=== PATIENT | female | born 1990 | race Caucasian/White ===

== ENCOUNTER 2016-06-27 12:39 | Emergency (ER) | payer OTHER, MEDICAID ==
[~2016-06-27] VITALS: Ht 167.6 cm; Wt 61.2 kg
[~2016-06-27 12:39] MED LIST: IBUP600 PO; PERI8.6T PO
[2016-06-27 12:43] VITALS: BP 129/87; PULSE 87; RESP 18; TEMP 99.2; O2SAT 99
--- NOTE | 2016-06-27 13:12 | PD ---
HPI Chief Complaint: Abdominal Pain Time Seen by Provider: 13:03 Travel History International Travel<30 days: No Contact w/Intl Traveler<30days: No Traveled to known affect area: No History of Present Illness HPI This 26-year-old female says he been vomiting off and on the last couple weeks. She has vomited twice today. She vomits about 3 or 4 times a day. She has a baby that 6 months old. She is concerned she might be now. She is not having abdominal pain. she had some morning sickness with her previous but did not take any medication PFSH Past Medical History Autoimmune Disease: No Anxiety: No Depression: No Cardiovascular Problems: No Diminished Hearing: No Gastrointestinal Disorders: Yes Genitourinary: No Musculoskeletal: No Neurologic: No Psychiatric: No Respiratory: No Immunizations Current: Yes Influenza Vaccination: No PNEUMOCCOCAL Vaccine (Year): 2 ?: Unknown LMP: 4 MONTHS : 1 Para: 1 : 1 Past Surgical History Other Surgery: Yes Social History Alcohol Use: No Tobacco Use: No Substance Use: No Allergies-Medications (Allergen,Severity, Reaction): Coded Allergies: No Known Allergies (Verified , 06/27/16) Reported Meds & Prescriptions Reported Meds & Active Scripts Active Review of Systems General / Constitutional: No: Fever, Chills Eyes: No: Diploplia, Blurred Vision HENT: No: Vertigo Respiratory: No: Cough Gastrointestinal: Positive: Vomiting, No: Diarrhea Genitourinary: No: Urgency, Frequency Musculoskeletal: No: Myalgias, Arthralgias Physical Exam Narrative GENERAL: Well-developed female SKIN: Warm and dry. HEAD: Atraumatic. Normocephalic. EYES: Pupils equal and round. No scleral icterus. No injection or drainage. ENT: No nasal bleeding or discharge. Mucous membranes pink and moist. NECK: Trachea midline. No JVD. CARDIOVASCULAR: Regular rate and rhythm. No murmur appreciated. RESPIRATORY: No accessory muscle use. Clear to auscultation. Breath sounds equal bilaterally. GASTROINTESTINAL: Abdomen soft, non-tender, nondistended. Hepatic and splenic margins not palpable. MUSCULOSKELETAL: No obvious deformities. No clubbing. No cyanosis. No edema. NEUROLOGICAL: Awake and alert. No obvious cranial nerve deficits. Motor grossly within normal limits. Normal speech. PSYCHIATRIC: Appropriate mood and affect; insight and judgment normal. Data Data Last Documented VS Vital Signs Date Time Temp Pulse Resp B/P Pulse Ox O2 Delivery O2 Flow Rate FiO2 06/27/16 12:43 99.2 87 18 129/87 99 Orders Ed Urine Pregnancytest Poc (06/27/16 13:03) Sodium Chlor 0.9% 1000 Ml Inj (Ns 1000 M (06/27/16 13:15) Ondansetron Inj (Zofran Inj) (06/27/16 13:15) Urinalysis - C+S If Indicated (06/27/16 13:07) Urine Culture (06/27/16 13:05) Labs Laboratory Tests Test 06/27/16 13:05 Urine Color YELLOW Urine Turbidity HAZY Urine pH 7.0 Urine Specific [place] 1.033 Urine Protein TRACE mg/dL Urine Glucose (UA) NEG mg/dL Urine Ketones 40 mg/dL Urine Occult Blood NEG Urine Nitrite NEG Urine Bilirubin NEG Urine Leukocyte Esterase SMALL Urine RBC 0-3 /hpf Urine WBC 6-8 /hpf Urine Squamous Epithelial > 8 /hpf Cells Urine Bacteria MOD /hpf Urine Mucus FEW /lpf Microscopic Urinalysis Comment CULTURE INDICATED MDM Medical Decision Making Medical Screen Exam Complete: Yes Emergency Medical Condition: Yes Medical Record Reviewed: Yes Differential Diagnosis Differential includes , gastritis Narrative Course Regnancy test is positive. Patient has been tolerating some liquids. Urinalysis has 6-8 white cells which is somewhat equivocal but we will treat as she is Diagnosis Primary Impression: Nausea and vomiting during Additional Impression: Urinary tract infection affecting care of mother in first trimester, antepartum Scripts Nitrofurantoin Monohydrate Macrocrystals (Macrobid)100 Mg [id number] Mg PO BID 7 Days Ref 0 Prov:David Rey MD 06/27/16 Disposition: 01 DISCHARGE HOME Condition: Stable David Rey MD Jun 27, 2016 13:12
[2016-06-27] MEDS ORDERED: ONDANSETRON HCL 4 MG/2 ML VIAL IV PUSH ONE (13:15)
[2016-06-27] MEDS ORDERED: SODIUM CHLOR 0.9% 1000 ML INJ 1,000 ML IV ONE (13:15)
[2016-06-27 13:16] LABS: BLOOD, URINE NEG (NEG); GLUCOSE,URINE NEG (NEG); KETONE, URINE 40 mg/dL (NEG); NITRITE,URINE NEG (NEG)
[2016-06-27 13:23] LABS: URINE COLOR YELLOW (YELLW/STRAW)
[2016-06-27 13:25] LABS: BACTERIA, URINE MOD /hpf; MUCUS URINE FEW /lpf (OCC); RBC, URINE 0-3 /hpf (0-3); SQUAMOUS EPITHELIAL CELL URINE > 8 /hpf (0-5)
[2016-06-27 13:26] LABS: COMMENT (UR) CULTURE INDICATED; CULTURE IF INDICATED CULTURE INDICATED
[2016-06-27] MEDS ORDERED: MACR100C2 PO (13:30)
== END 2016-06-27 13:44 | disposition home or self-care (01) ==
LOC: PHED 12:39
DX: O23.41 Unspecified infection of urinary tract in pregnancy, first trimester (principal); O21.0 Mild hyperemesis gravidarum; Z3A.00 Weeks of gestation of pregnancy not specified
CPT/HCPCS: 81001; 84703; 87086; 99284

== ENCOUNTER 2016-07-02 11:44 | Observation (INO) | payer MEDICAID, OTHER ==
[~2016-07-02 11:44] MED LIST changes: -IBUP600 PO; +MACR100C2 PO; -PERI8.6T PO
[2016-07-02 11:46] VITALS: BP 147/105; PULSE 105; RESP 16; TEMP 97.9; O2SAT 98
[2016-07-02] MEDS ORDERED: LACTATED RINGER'S 1000 ML INJ 1,000 ML IV SCH (13:00)
[2016-07-02] MEDS ORDERED: LACTATED RINGER'S 1000 ML INJ 1,000 ML IV ONE (13:00)
[2016-07-02 13:29] LABS: AUTOMATED NEUTROPHIL # 9.6 TH/MM3 (1.8-7.7); BASOPHIL # 0.1 TH/MM3 (0-0.2); BASOPHIL % 0.4 % (0.0-2.0); EOSINOPHIL % 0.2 % (0.0-4.0); HEMATOCRIT 42.9 % (35.0-46.0); HEMO FLAGS DIFF FINAL; LYMPH % 19.4 % (9.0-44.0); LYMPHOCYTE # 2.7 TH/MM3 (1.0-4.8); MEAN CELL VOLUME 80.2 FL (80.0-100.0); MEAN CORPUSCULAR HEMOGLOBIN 28.3 PG (27.0-34.0); MEAN CORPUSCULAR HGB CONC 35.2 % (32.0-36.0); MONO % 9.5 % (0.0-8.0); NEUT % 70.5 % (16.0-70.0); PLATELET COUNT 248 TH/MM3 (150-450); RED BLOOD COUNT 5.35 MIL/MM3 (4.00-5.30); RED CELL DISTRIBUTION WIDTH 13.3 % (11.6-17.2); WHITE BLOOD COUNT 13.7 TH/MM3 (4.0-11.0)
--- NOTE | 2016-07-02 13:32 | PD ---
HPI Chief Complaint Nausea and vomiting Date Seen: Jul 02, 2016 Time Seen: 13:00 Travel History International Travel<30 Days: No Contact w/Intl Traveler<30Days: No Known Affected Area: No History of Present Illness HPI 26-year-old 001 at approximately 10 weeks of gestation by bedside ultrasound performed in OB ED. Patient presents to labor and delivery complaining of persistent episodes of nausea and vomiting for the last 5 days. Patient reported that the family went out to eat in a restaurant after which the [id number] started getting sick, followed by her and then the patient. Patient denies cramping, leakage of fluids, vaginal bleeding. The close-spaced/ short interval , patient has a 6-month-old baby at home. She denies dysuria, frequency, fever and chills. Patient is yet to start care with Dr. Jiménez, first visit has been scheduled. Para: 1 : 2 Miscarriage: 0 : 0 History Past Medical History Narrative Medical Denies Medical History: Denies Significant Hx Obstetric History Obstetric History Spontaneous vaginal delivery 1 Past Surgical History Narrative Surgical Status post left knee surgery Family History Narrative Family History Father has hypertension Social History Alcohol Use: No Tobacco Use: No Substance Abuse: No Allergies-Medications (Allergen,Severity, Reaction): Coded Allergies: No Known Allergies (Verified , 06/27/16) Home Meds Active Scripts Nitrofurantoin Monohydrate Macrocrystals (Macrobid)100 Mg [id number] Mg PO BID 7 Days Ref 0 Prov:David Rey MD 06/27/16 Review of Systems Except as stated in HPI: all other systems reviewed are Neg Gastrointestinal: Nausea, Vomiting Physical Exam Narrative GENERAL: Well-nourished, well-developed patient. SKIN: Warm and dry. HEAD: Normocephalic and atraumatic. EYES: No scleral icterus. No injection or drainage. ENT: No nasal drainage noted. Mucous membranes pink. Airway patent. NECK: Supple, trachea midline. No JVD. CARDIOVASCULAR: Regular rate and rhythm without murmurs, gallops, or rubs. RESPIRATORY: Breath sounds equal bilaterally. No accessory muscle use. BREASTS: Bilateral exam showed no masses , no retractions, no nipple discharge. ABDOMEN/GI: Abdomen soft, non-tender, bowel sounds present, no rebound, no guarding Gravid to 9 weeks size Fundal Height: 9cm GENITOURINARY: External Genitalia: intact and normal in appearance BUS glands: Normal Cervix: Closed, long, posterior Dilatation: Closed Effacement: 20% Station: -4 Presentation: Variable Membranes: Intact Uterine Contractions: None Heart Tones by doppler: 160's EXTREMITIES: No cyanosis or edema. BACK: Nontender without obvious deformity. No CVA tenderness. NEUROLOGICAL: Awake and alert. Motor and sensory grossly within normal limits. Five out of 5 muscle strength in all muscle groups. Normal speech. Data Data Vital Signs Reviewed: Yes Orders Vital Signs (Adult) .ON ADMISSION (07/02/16 12:47) ^ Labor Status (07/02/16 12:47) Urinalysis - C+S If Indicated (07/02/16 12:47) ^ Non Stress Test (07/02/16 12:47) ^ Hydration (07/02/16 12:47) Comprehensive Metabolic Panel (07/02/16 12:47) Lactated Ringer's 1000 Ml Inj (Lr 1000 M (07/02/16 13:00) Ondansetron Inj (Zofran Inj) (07/02/16 14:00) Lactated Ringer's 1000 Ml Inj (Lr 1000 M (07/02/16 13:00) Promethazine Inj (Phenergan Inj) (07/02/16 14:00) Magnesium (Mg) (07/02/16 12:47) Phosphorus (Po4) (07/02/16 12:47) Free Thyroxine (T4) (07/02/16 12:47) Thyroid Stimulating Hormone (07/02/16 12:47) Complete Blood Count With Diff (07/02/16 12:50) Diet Full Liquid (07/02/16 Lunch) MDM Medical Record Reviewed: Yes Diagnosis Diagnosis: Primary Impression: 10 weeks gestation of Additional Impression: Nausea and vomiting during Disposition: DISCHARGE HOME Condition: Stable Patient Instructions: General Instructions Additional Instructions: We will place patient on the observation, IV hydration, by mouth challenge, we' ll send CMP CBC and urinalysis. Upon discharge patient is instructed to return to labor and delivery if increased symptoms, cramping, contractions, leakage of fluids, vaginal bleeding. Drink plenty of fluids. Keep office appointment as scheduled. Take medications as prescribed. Departure Forms: Tests/Procedures Bharat Carvajal MD Jul 02, 2016 13:32
[2016-07-02 13:38] LABS: BACTERIA, URINE OCC /hpf; BLOOD, URINE NEG (NEG); COMMENT (UR) CULTURE INDICATED; CULTURE IF INDICATED CULTURE INDICATED; GLUCOSE,URINE TRACE mg/dL (NEG); KETONE, URINE 150 mg/dL (NEG); MUCUS URINE MANY /lpf (OCC); NITRITE,URINE NEG (NEG); PH, URINE 5.5 (5.0-8.5); SQUAMOUS EPITHELIAL CELL URINE 88 /hpf (0-5); URINE COLOR DARK-YELLOW (YELLW/STRAW)
[2016-07-02 13:46] LABS: ANION GAP 14 MEQ/L (5-15); AST (GOT) 39 U/L (15-37); BICARBONATE 26.5 MEQ/L (21.0-32.0); BLOOD UREA NITROGEN 10 MG/DL (7-18); CHLORIDE 96 MEQ/L (98-107); GLOMERULAR FILTRATION RATE 118 ML/MIN (>89); MAGNESIUM 2.1 MG/DL (1.5-2.5); SODIUM (NA) 136 MEQ/L (136-145)
[2016-07-02 13:49] LABS: POTASSIUM 2.8 MEQ/L (3.5-5.1)
[2016-07-02 13:59] LABS: ALKALINE PHOSPHATASE 111 U/L (45-117); ALT (GPT) 67 U/L (10-53); FREE T4 2.42 NG/DL (0.76-1.46); TOTAL BILIRUBIN ADULT 1.1 MG/DL (0.2-1.0)
[2016-07-02] MEDS ORDERED: PROMETHAZINE INJ 25 MG/ML VIAL IM ONE (14:00)
[2016-07-02] MEDS ORDERED: POTASSIUM CHLORIDE 10 MEQ CONTROLLED RELEASE TAB PO SCH (14:00)
[2016-07-02] MEDS ORDERED: ONDANSETRON HCL 4 MG/2 ML VIAL IV ONE (14:00)
[2016-07-02] MEDS ORDERED: ONDANSETRON HCL 4 MG/2 ML VIAL IV PUSH SCH (14:00)
[2016-07-02] MEDS: cefTRIAXone INJ 2,000 MG in SODIUM CHLORIDE 0.9% INJ 100 ML IV SCH (14:54)
[2016-07-02 16:06] LABS: FREE T3 5.01 PG/ML (2.18-3.98)
[2016-07-02] MEDS ORDERED: PILL SPLITTER OTHER PRN (16:15)
[2016-07-02] MEDS: NS + KCL 40 MEQ INJ 1,000 ML IV SCH ×2 (16:22→23:34)
[2016-07-02] MEDS: PYRIDOXINE HCL 50 MG TAB PO SCH ×2 (16:23→19:26)
[2016-07-02] MEDS: POTASSIUM CHLORIDE 10 MEQ CONTROLLED RELEASE TAB PO SCH (16:23)
[2016-07-02 16:39] VITALS: BP 117/74; PULSE 87
[2016-07-02 16:40] VITALS: RESP 20
[2016-07-02 18:00] VITALS: BP 123/80; PULSE 84; RESP 20; TEMP 97.3; O2SAT 97
[2016-07-02] MEDS ORDERED: SODIUM CHLORIDE 0.9% FLUSH 5 ML FLUSH IVF PRN (18:15)
[2016-07-02] MEDS ORDERED: PROMETHAZINE INJ 25 MG/ML VIAL IM PRN (18:15)
[2016-07-02] MEDS: LEVOTHYROXINE SODIUM 50 MCG TAB PO SCH (18:23)
[2016-07-02] MEDS: ONDANSETRON HCL 4 MG/2 ML VIAL IV PUSH SCH (19:26)
[2016-07-02] MEDS: SODIUM CHLORIDE 0.9% FLUSH 5 ML FLUSH IVF SCH (19:26)
[2016-07-02 20:00] VITALS: BP 119/78; PULSE 104; RESP 17; TEMP 98.8; O2SAT 97
[2016-07-02] MEDS: diphenhydrAMINE HCL 25 MG CAP PO SCH (20:34)
[2016-07-03] VITALS: BP 124/82; PULSE 88; RESP 16; TEMP 98.2; O2SAT 98
[2016-07-03] MEDS: ONDANSETRON HCL 4 MG/2 ML VIAL IV PUSH SCH ×5 (02:11→19:06)
[2016-07-03 04:00] VITALS: BP 111/78; PULSE 74; RESP 16; TEMP 97.6; O2SAT 97
[2016-07-03] MEDS: POTASSIUM CHLORIDE 10 MEQ CONTROLLED RELEASE TAB PO SCH (04:26)
[2016-07-03] MEDS: PYRIDOXINE HCL 50 MG TAB PO SCH ×4 (04:27→19:07)
[2016-07-03] MEDS: LEVOTHYROXINE SODIUM 50 MCG TAB PO SCH (04:27)
[2016-07-03 07:31] LABS: BICARBONATE 25.6 MEQ/L (21.0-32.0); POTASSIUM 4.2 MEQ/L (3.5-5.1)
[2016-07-03 08:00] VITALS: BP 98/70; PULSE 94; RESP 18; TEMP 98.2; O2SAT 96
[2016-07-03] MEDS: SODIUM CHLORIDE 0.9% FLUSH 5 ML FLUSH IVF SCH ×2 (08:08→19:06)
[2016-07-03] MEDS: NS + KCL 40 MEQ INJ 1,000 ML IV SCH ×2 (08:08→15:18)
[2016-07-03 12:00] VITALS: BP 101/70; PULSE 88; RESP 16; TEMP 98.8; O2SAT 97
[2016-07-03] MEDS: cefTRIAXone INJ 2,000 MG in SODIUM CHLORIDE 0.9% INJ 100 ML IV SCH (15:19)
[2016-07-03 16:00] VITALS: BP 111/60; PULSE 80; RESP 16; TEMP 98.6; O2SAT 99
[2016-07-03] MEDS: diphenhydrAMINE HCL 25 MG CAP PO SCH (19:06)
[2016-07-03 20:00] VITALS: BP 113/69; PULSE 87; RESP 16; TEMP 98.6; O2SAT 98
[2016-07-04] VITALS: BP 115/64; PULSE 72; RESP 16; TEMP 98.4; O2SAT 99
[2016-07-04 04:00] VITALS: BP 102/67; PULSE 71; RESP 16; TEMP 95.9; O2SAT 99
[2016-07-04] MEDS: ONDANSETRON HCL 4 MG/2 ML VIAL IV PUSH SCH ×4 (04:00→12:00)
[2016-07-04] MEDS: PYRIDOXINE HCL 50 MG TAB PO SCH ×3 (04:06→14:55)
[2016-07-04] MEDS: LEVOTHYROXINE SODIUM 50 MCG TAB PO SCH (04:06)
[2016-07-04] MEDS: SODIUM CHLORIDE 0.9% FLUSH 5 ML FLUSH IVF SCH (07:59)
[2016-07-04 08:00] VITALS: BP 116/69; PULSE 72; RESP 15; TEMP 96.7; O2SAT 100
[2016-07-04] MEDS: NS + KCL 40 MEQ INJ 1,000 ML IV SCH ×2 (08:03)
[2016-07-04 12:00] VITALS: BP 114/74; PULSE 83; RESP 16; TEMP 96.8; O2SAT 98
--- NOTE | 2016-07-04 12:47 | PD.OB.ANTE ---
Subjective Diagnosis: (1) 10 weeks gestation of Diagnosis: Principal (2) Hyperemesis gravidarum with metabolic disturbance Diagnosis: Secondary Interval History Patient is doing well, denies nausea and vomiting, patient is tolerating regular diet, voiding well and ambulating without difficulty. Patient desires to go home. Antepartum ROS: Reports: Other (no new complaints) Objective Vital Signs Vital signs are stable Vital Signs Date Time Temp Pulse Resp B/P Pulse Ox O2 Delivery O2 Flow Rate FiO2 07/04/16 08:00 96.7 72 15 116/69 100 07/04/16 04:00 95.9 71 16 102/67 99 07/04/16 00:00 98.4 72 16 115/64 99 07/03/16 20:00 98.6 87 16 113/69 98 07/03/16 16:00 98.6 80 16 111/60 99 Intake & Output 07/04/16 07/04/16 07:00 19:00 Intake Total 2469 ml Output Total 2200 ml Balance 269 ml Intake Oral 960 ml IV Total 1509 ml Output Urine Total 2200 ml Lab & Micro Results Date/Time Procedure Status Source Growth 07/02/16 12:15 Urine Culture - Final Complete Urine Clean Catch 50-100,000 CFU/ML MIXED GRAM POSITIVE... Physical Exam GENERAL: Well-nourished, well-developed patient. CARDIOVASCULAR: Regular rate and rhythm without murmurs, gallops, or rubs. RESPIRATORY: Breath sounds equal bilaterally. No accessory muscle use. ABDOMEN/GI: Abdomen soft, gravid, non-tender. Fundus: 90 cm GENITOURINARY: External Genitalia: intact and normal in appearance Heart Tones's by doppler: 160's EXTREMITIES: No cyanosis or edema, non-tender, without signs of DVT. Assessment and Plan Problem List: (1) 10 weeks gestation of Status: Acute (2) Hyperemesis gravidarum with metabolic disturbance Status: Acute Assessment and Plan at 10 weeks of gestation with hyperemesis gravidarum with metabolic disturbance. Patient is doing well, nausea and vomiting is resolved. Patient is desires to go home. 1. at 10 weeks of gestation * We'll discharge patient to home * Follow with the Dr. Jiménez for first visit * Continue with vitamins * Estimated gestational age ultrasound as an outpatient. * 2. Hyperemesis gravidarum with metabolic disturbance * We'll discharge patient home with Zofran 4 mg by mouth every 4 hours as needed for nausea * Vitamins B6 25 mg orally every 6 hours * Diclegis 2 tablets orally at bedtime. * 3. Hyperthyroidism * Continue with Synthroid 50 MCG 1 day * Follow with decorator consultant We'll discharge patient to home today, follow with Dr. Jiménez in 1-2 days. Bharat Carvajal MD Jul 04, 2016 12:47
[2016-07-04] MEDS ORDERED: VITA50TA3 PO (12:53)
[2016-07-04] MEDS ORDERED: LEVO.05 PO (12:54)
--- NOTE | 2016-07-04 13:00 | HHI.DS ---
Admission Date Jul 02, 2016 at 18:12 Discharge Date: Jul 04, 2016 Admitting Diagnosis at 10 weeks of gestation, hyperemesis gravidarum with metabolic disturbance, hypokalemia, hyperthyroidism Diagnosis: (1) 10 weeks gestation of Diagnosis: Principal (2) Hyperemesis gravidarum with metabolic disturbance Diagnosis: Secondary (3) Hypokalemia Diagnosis: Secondary (4) Hyperthyroidism affecting in first trimester Diagnosis: Secondary (5) UTI (urinary tract infection) Diagnosis: Secondary Brief History 26-year-old 001 at approximately 10 weeks of gestation by bedside ultrasound performed in OB ED. Patient presents to labor and delivery complaining of persistent episodes of nausea and vomiting for the last 5 days. Patient reported that the family went out to eat in a restaurant after which the [id number] started getting sick, followed by her and then the patient. Patient denies cramping, leakage of fluids, vaginal bleeding. The close-spaced/ short interval , patient has a 6-month-old baby at home. She denies dysuria, frequency, fever and chills. Patient is yet to start care with Dr. Jiménez, first visit has been scheduled. Hospital Course The hospital course was unremarkable patient was treated with Zofran, promethazine, vitamin B6 and ceftriaxone for treatment of UTI. On the day of discharge symptoms have resolved, patient was doing well and desires to go home. Pt Condition on Discharge: Stable Discharge Disposition: Discharge Home Discharge Instructions Diet Instructions: As Tolerated, No Restrictions Additional Diet Instructions: eat small frequent meals as tolerated. Activities You Can Perform: Regular-No Restrictions Activities to Avoid: Prolonged Standing, Strenuous Activity Bharat Carvajal MD Jul 04, 2016 12:59
== END 2016-07-04 16:25 | disposition home or self-care (01) ==
LOC: HOBED 11:44 → HOCA 18:12
PROVIDERS: ADMIT Obstetrics & Gynecology; ATTEND Obstetrics & Gynecology
DX: O21.1 Hyperemesis gravidarum with metabolic disturbance (principal); O99.281 Endocrine, nutritional and metabolic diseases complicating pregnancy, first trimester; E05.90 Thyrotoxicosis, unspecified without thyrotoxic crisis or storm; O23.41 Unspecified infection of urinary tract in pregnancy, first trimester; Z3A.10 10 weeks gestation of pregnancy
CPT/HCPCS: 59025; 80048; 80053; 81001; 83735; 84100; 84439; 84443; 84481; 84702; 85025; 87086; 96361; 96365; 96366; 96372; 96375; 99284; G0378; J0696; J2405; J2550; J3480; J7120

== ENCOUNTER 2016-07-11 17:41 | Emergency (ER) | payer MEDICAID, OTHER ==
[~2016-07-11] VITALS: Ht 167.6 cm; Wt 65.9 kg
[~2016-07-11 17:41] MED LIST changes: +LEVO.05 PO; +VITA50TA3 PO
[2016-07-11 17:47] VITALS: BP 139/85; PULSE 92; RESP 16; TEMP 98.5; O2SAT 95
[2016-07-11 18:29] LABS: BLOOD, URINE NEG (NEG); COMMENT (UR) CULTURE INDICATED; CULTURE IF INDICATED CULTURE INDICATED; GLUCOSE,URINE 70 mg/dL (NEG); KETONE, URINE 10 mg/dL (NEG); MUCUS URINE MANY /lpf (OCC); NITRITE,URINE NEG (NEG); PH, URINE 6.5 (5.0-8.5); SQUAMOUS EPITHELIAL CELL URINE 53 /hpf (0-5); URINE COLOR YELLOW (YELLW/STRAW)
[2016-07-11] MEDS ORDERED: SODIUM CHLOR 0.9% 1000 ML INJ 1,000 ML IV ONE ×2 (22:15→23:45)
--- NOTE | 2016-07-11 22:17 | PD ---
HPI Chief Complaint: GI Complaint Time Seen by Provider: 22:09 Travel History International Travel<30 days: No Contact w/Intl Traveler<30days: No Traveled to known affect area: No History of Present Illness HPI The patient is a 26 year old female at approximately 10 weeks gestation who presents to the [facility] emergency department with a history of nausea and vomiting that began recurrently 3 days ago. The patient was just recently admitted to the hospital overnight related to electrolyte derangements and hyperemesis gravidarum. The patient was discharged home with a prescription for V6, Zofran, promethazine, Synthroid, and Macrobid, however the patient reports that she could only get the V6 vitamin. The patient reports that she recurrently had nausea and vomiting that has gradually gotten worse over today. She reports that she is able to eat small meals, however she cannot keep down any liquids. She reports having generalized weakness. She reports that she did follow up with her CLAMPER, Dr. Jiménez 3 days after her last admission to the hospital on July 02. She reports that her ultrasound was again done at that time that confirmed heart tones and intrauterine . The patient reports that the last time that she had a bowel movement was 2 days ago. The patient denies any recent fevers, cough, congestion, neck pain, chest pain, shortness of breath, diarrhea, urinary symptoms, or neurologic symptoms. LMP: Reportedly March 28, however the patient reports that she had a term vaginal delivery in November 2015. [facility] Past Medical History Narrative Medical The patient's past medical history is significant for recently being diagnosed with a thyroid abnormality during her last admission for hyperemesis, however the patient has not started the Synthroid. Autoimmune Disease: No Blood Disorders: No Anxiety: No Depression: No Cancer: No Cardiovascular Problems: No Diminished Hearing: No Endocrine: No Gastrointestinal Disorders: Yes Genitourinary: No Immune Disorder: No Musculoskeletal: No Neurologic: No Psychiatric: No Respiratory: No Immunizations Current: Yes PNEUMOCCOCAL Vaccine (Year): 2 ?: LMP: Mar 28 : 1 Para: 1 : 1 Past Surgical History Narrative Surgical The patient's past surgical history is significant for a left knee surgery. Other Surgery: Yes Social History Alcohol Use: No Tobacco Use: No Substance Use: No Allergies-Medications (Allergen,Severity, Reaction): Coded Allergies: No Known Allergies (Verified , 06/27/16) Reported Meds & Prescriptions Reported Meds & Active Scripts Active Phenergan (Promethazine HCl) 25 Mg Tab 12.5 Mg PO Q 6 HOURS Synthroid (Levothyroxine Sodium) 50 Mcg Tab 50 Mcg PO DAILY@06 Vitamin B-6 (Pyridoxine HCl) 50 Mg Tab 25 Mg PO Q6HR Macrobid (Nitrofurantoin Monoh/Nitrofur Macro) 100 Mg Cap 100 Mg PO BID 7 Days Review of Systems Except as stated in HPI: all other systems reviewed are Neg General / Constitutional: No: Fever Eyes: No: Visual changes HENT: No: Headaches Cardiovascular: No: Chest Pain or Discomfort Respiratory: No: Shortness of Breath Gastrointestinal: Positive: Nausea, Vomiting, Abdominal Pain, Constipation, Changes in Bowel Habits, No: Diarrhea, Indigestion, Loss of Appetite Genitourinary: No: Urgency, Frequency, Dysuria, Flank Pain Musculoskeletal: No: Pain Skin: No Rash Neurologic: Positive: Weakness (generalized weakness), No: Focal Abnormalities , Change in Mentation, Slurred Speech, Sensory Disturbance Psychiatric: No: Depression Endocrine: No: Polydipsia Hematologic/Lymphatic: No: Easy Bruising Physical Exam Narrative General: The patient is well-developed well-nourished female in no acute distress. Head and Neck exam: Head is normocephalic atraumatic. Eyes: Pupils are equal round and reactive to light. Nose: Midline septum with pink mucous membranes Mouth: Dentition unremarkable. Moist mucus membranes. Posterior oropharynx is not erythematous. No tonsillar hypertrophy. Uvula midline. Airway patent. Neck: No palpable lymphadenopathy. No nuchal rigidity. No thyromegaly. Cardiovascular: Regular rate and rhythm without murmurs, gallops, or rubs. Lungs: Clear to auscultation bilaterally. No wheezes, rhonchi, or rales. Abdomen: Soft, without tenderness to palpation in all 4 quadrants of the abdomen. No guarding, rebound, or rigidity. Normal bowel sounds are audible. No tenderness on palpation of McBurney's point. Extremities: No clubbing, cyanosis, or edema. 2+ pulses in all 4 extremities. No calf tenderness on palpation. Back: No spinous process tenderness to palpation. No costovertebral angle tenderness to palpation. Neurologic Exam: Grossly nonfocal. Skin Exam: No rash noted. Intact skin that is warm and dry. Data Data Last Documented VS Vital Signs Date Time Temp Pulse Resp B/P Pulse Ox O2 Delivery O2 Flow Rate FiO2 07/11/16 23:28 18 07/11/16 23:23 100 Room Air 07/11/16 17:47 98.5 92 139/85 Orders Urinalysis - C+S If Indicated (07/11/16 17:56) Ed Urine Pregnancytest Poc (07/11/16 17:56) Urine Culture (07/11/16 18:10) Complete Blood Count With Diff (07/11/16 22:12) Comprehensive Metabolic Panel (07/11/16 22:12) Lipase (07/11/16 22:12) Beta Hcg (Quant/Titer) (07/11/16 22:12) Iv Access Insert/Monitor (07/11/16 22:12) Ecg Monitoring (07/11/16 22:12) Oximetry (07/11/16 22:12) Sodium Chlor 0.9% 1000 Ml Inj (Ns 1000 M (07/11/16 22:15) Ondansetron Inj (Zofran Inj) (07/11/16 22:45) Ondansetron Inj (Zofran Inj) (07/11/16 22:34) Thyroid Stimulating Hormone (07/11/16 22:30) Sodium Chlor 0.9% 1000 Ml Inj (Ns 1000 M (07/11/16 23:45) Labs Laboratory Tests Test 07/11/16 07/11/16 18:10 22:30 Urine Color YELLOW Urine Turbidity HAZY Urine pH 6.5 Urine Specific [place] 1.029 Urine Protein 30 mg/dL Urine Glucose (UA) 70 mg/dL Urine Ketones 10 mg/dL Urine Occult Blood NEG Urine Nitrite NEG Urine Bilirubin NEG Urine Urobilinogen LESS THAN 2.0 MG/DL Urine Leukocyte Esterase LARGE Urine RBC 2 /hpf Urine WBC 7 /hpf Urine Squamous Epithelial 53 /hpf Cells Urine Mucus MANY /lpf Microscopic Urinalysis Comment CULTURE INDICATED White Blood Count 13.7 TH/MM3 Red Blood Count 5.18 MIL/MM3 Hemoglobin 15.2 GM/DL Hematocrit 42.8 % Mean Corpuscular Volume 82.7 FL Mean Corpuscular Hemoglobin 29.4 PG Mean Corpuscular Hemoglobin 35.6 % Concent Red Cell Distribution Width 13.1 % Platelet Count 264 TH/MM3 Mean Platelet Volume 9.5 FL Neutrophils (%) (Auto) 70.1 % Lymphocytes (%) (Auto) 21.2 % Monocytes (%) (Auto) 8.1 % Eosinophils (%) (Auto) 0.2 % Basophils (%) (Auto) 0.4 % Neutrophils # (Auto) 9.6 TH/MM3 Lymphocytes # (Auto) 2.9 TH/MM3 Monocytes # (Auto) 1.1 TH/MM3 Eosinophils # (Auto) 0.0 TH/MM3 Basophils # (Auto) 0.1 TH/MM3 CBC Comment DIFF FINAL Differential Comment Sodium Level 139 MEQ/L Potassium Level 3.5 MEQ/L Chloride Level 102 MEQ/L Carbon Dioxide Level 26.6 MEQ/L Anion Gap 10 MEQ/L Blood Urea Nitrogen 9 MG/DL Creatinine 0.56 MG/DL Estimat Glomerular Filtration 133 ML/MIN Rate Random Glucose 87 MG/DL Calcium Level 9.5 MG/DL Total Bilirubin 0.5 MG/DL Aspartate Amino Transf 22 U/L (AST/SGOT) Alanine Aminotransferase 75 U/L (ALT/SGPT) Alkaline Phosphatase 103 U/L Total Protein 8.7 GM/DL Albumin 4.0 GM/DL Lipase 372 U/L Thyroid Stimulating Hormone 0.121 uIU/ML 3rd Gen Human Chorionic Gonadotropin, GREATER THAN Quant [id number] MIU/ML MDM Medical Decision Making Medical Screen Exam Complete: Yes Emergency Medical Condition: Yes Medical Record Reviewed: Yes Differential Diagnosis Dehydration, versus electrolyte derangements, versus vomiting in , versus thyroid abnormality, versus recurrent urinary tract infection Narrative Course During the course of the patients emergency department visit, the patients history, examination, and differential diagnosis were reviewed with the patient. The patient had IV access obtained and blood work sent for analysis. The patient was placed on a time buyer with oximetry and blood pressure monitoring. The patient was provided normal saline 1 L IV fluid bolus, Zofran 4 mg IV. The patient refused Zofran. She reports that she would prefer not to take his nausea medication at this point. The patients laboratory studies were reviewed and remarkable for a white count 13.7, hemoglobin 15.2, platelets 264 with 71 neutrophils, 8.1 monocytes, CMP is unremarkable except for an ALT of 75, total protein 8.7, TSH 0.121, beta hCG greater than 200,000, urinalysis shows 30 protein 70 glucose 10 ketones with the 3 squamous epithelial cells, 7 WBCs. No bacteria. The patient was given a second liter of normal saline IV fluids. The patient had no vomiting while being observed in the emergency department. Review of the $4 list at [facility] reveals that promethazine tablets, 25 mg tablets are on the list. The patient will be given a prescription for these tablets. She is instructed to slit the tablet in half and take one tablet every 6 hours as needed for nausea. The patient is instructed to push fluids and get plenty of rest. The patient is instructed regarding the importance of following up with her CLAMPER and getting her other prescriptions prescribed during her last admission as soon as possible. The patient is resting comfortably and feels better, is alert and in no distress. The patients results and examination findings were discussed with the patient. The repeat examination is unremarkable and benign. The history, exam, diagnostic testing, and current condition do not suggest any significant pathology to warrant further testing, continued ED treatment, admission, or surgical evaluation at this point. The vital signs have been stable. The patient does not have uncontrollable pain, intractable vomiting, or other significant symptoms. The patient's condition is stable and appropriate for discharge. The patient will pursue further outpatient evaluation with a primary care physician or other designated or consulting physician as indicated in the discharge instructions. The patient expressed understanding and was agreeable with this plan. Diagnosis Primary Impression: Vomiting affecting Referrals: Fransico Jiménez MD 2 days Patient Instructions: General Instructions, Nausea and Vomiting in ( ED) Med/Other Pt SpecificInfo: Prescription(s) given Scripts Promethazine (Phenergan)25 Mg Tab12.5 Mg PO q 6 hours #12 TAB Ref 0 Prov:Oanh Del Rosario MD 07/11/16 Disposition: 01 DISCHARGE HOME Condition: Stable Oanh Del Rosario MD Jul 11, 2016 22:16
[2016-07-11] MEDS ORDERED: ONDANSETRON HCL 4 MG/2 ML VIAL ONE (22:34)
[2016-07-11] MEDS ORDERED: ONDANSETRON HCL 4 MG/2 ML VIAL IV ONE (22:45)
[2016-07-11] MEDS ORDERED: PROM25TA5 PO (22:52)
[2016-07-11 23:18] LABS: AUTOMATED NEUTROPHIL # 9.6 TH/MM3 (1.8-7.7); BASOPHIL # 0.1 TH/MM3 (0-0.2); BASOPHIL % 0.4 % (0.0-2.0); EOSINOPHIL % 0.2 % (0.0-4.0); HEMATOCRIT 42.8 % (35.0-46.0); HEMO FLAGS DIFF FINAL; LYMPH % 21.2 % (9.0-44.0); LYMPHOCYTE # 2.9 TH/MM3 (1.0-4.8); MEAN CELL VOLUME 82.7 FL (80.0-100.0); MEAN CORPUSCULAR HEMOGLOBIN 29.4 PG (27.0-34.0); MEAN CORPUSCULAR HGB CONC 35.6 % (32.0-36.0); MONO % 8.1 % (0.0-8.0); NEUT % 70.1 % (16.0-70.0); PLATELET COUNT 264 TH/MM3 (150-450); RED BLOOD COUNT 5.18 MIL/MM3 (4.00-5.30); RED CELL DISTRIBUTION WIDTH 13.1 % (11.6-17.2); WHITE BLOOD COUNT 13.7 TH/MM3 (4.0-11.0)
[2016-07-11 23:23] VITALS: O2SAT 100
[2016-07-11 23:40] LABS: ALT (GPT) 75 U/L (10-53); ANION GAP 10 MEQ/L (5-15); AST (GOT) 22 U/L (15-37); BICARBONATE 26.6 MEQ/L (21.0-32.0); BLOOD UREA NITROGEN 9 MG/DL (7-18); CHLORIDE 102 MEQ/L (98-107); GLOMERULAR FILTRATION RATE 133 ML/MIN (>89); POTASSIUM 3.5 MEQ/L (3.5-5.1); SODIUM (NA) 139 MEQ/L (136-145)
[2016-07-11 23:57] LABS: ALKALINE PHOSPHATASE 103 U/L (45-117); TOTAL BILIRUBIN ADULT 0.5 MG/DL (0.2-1.0)
[2016-07-12 00:01] LABS: BETA HCG QUANT GREATER THAN 200000 MIU/ML (0-5)
[2016-07-12 00:56] VITALS: BP 120/84; PULSE 75; RESP 18; O2SAT 100
== END 2016-07-12 00:58 | disposition home or self-care (01) ==
LOC: NEPC 17:41
DX: O21.0 Mild hyperemesis gravidarum (principal); O99.281 Endocrine, nutritional and metabolic diseases complicating pregnancy, first trimester; E05.90 Thyrotoxicosis, unspecified without thyrotoxic crisis or storm; Z3A.10 10 weeks gestation of pregnancy
CPT/HCPCS: 80053; 81001; 83690; 84443; 84702; 84703; 85025; 87086; 96361; 96374; 99284; J2405; J7030

== ENCOUNTER → 2017-01-06 | Outpatient (CLI) | payer MEDICAID ==
[~2017-01-06] MED LIST changes: +IBUP-232 PO; +PROM25TA5 PO
== END ==
LOC: HPND 08:30
PROVIDERS: ATTEND Obstetrics & Gynecology
DX: O26.613 Liver and biliary tract disorders in pregnancy, third trimester (principal); Z3A.00 Weeks of gestation of pregnancy not specified
CPT/HCPCS: 76816; 76818

== ENCOUNTER 2017-01-25 12:33 | Inpatient (IN) | payer MEDICAID ==
[2017-01-25] VITALS (23 sets, daily range): BP systolic 98–121; BP diastolic 58–78; PULSE 64–99; RESP 16–18; TEMP 97.5–98.1
[~2017-01-25] VITALS: Ht 167.6 cm; Wt 70.3 kg
[~2017-01-25 12:33] MED LIST changes: -IBUP-232 PO
[2017-01-25] MEDS: LACTATED RINGER'S 1000 ML INJ 1,000 ML IV SCH ×2 (13:40→16:23)
[2017-01-25] MEDS ORDERED: LACTATED RINGER'S 1000 ML INJ 1,000 ML IV PRN (13:40)
[2017-01-25] MEDS ORDERED: SODIUM CHLORID 0.9% 500 ML INJ 500 ML IV PRN (13:45)
[2017-01-25] MEDS ORDERED: OXYTOCIN 30 UNITS-500ML PREMIX 500 ML IV ONE (13:45)
[2017-01-25] MEDS ORDERED: MINERAL OIL 10 ML VIAL TOPICAL PRN (13:45)
[2017-01-25] MEDS ORDERED: CITRIC ACID-SODIUM CITRATE LIQ 30 ML UDC PO SCH (13:45)
[2017-01-25] MEDS ORDERED: LIDOCAINE HCL 1% 50 ML VIAL INFIL PRN (13:45)
[2017-01-25] MEDS ORDERED: ONDANSETRON HCL 4 MG/2 ML VIAL IV PRN (13:45)
[2017-01-25] MEDS ORDERED: LIDOCAINE HCL 1% 50 ML VIAL I-DERMAL PRN (13:45)
--- NOTE | 2017-01-25 13:48 | HHI.HP ---
HPI Chief Complaint Induction of labor for intrahepatic cholestasis of . Date Seen: Jan 25, 2017 Travel History International Travel<30 Days: No Contact w/Intl Traveler<30Days: No History of Present Illness HPI Patient is a 26 year old at 37-2/7 weeks gestation who presents today for induction of labor for intrahepatic cholestasis of . Bile acids were elevated at 35.6 on 12/27/16 and trended down to 10.9 on 01/10/17 while on ursodeoxycholic acid. She has been having intermittent contractions. She denies any vaginal bleeding or discharge. No gush or leaking of fluid. Positive movement. History Past Medical History Narrative Medical Intrahepatic cholestasis of Obstetric History Obstetric History s/p 11/2012 at 38 weeks gestation Past Surgical History Narrative Surgical ACL reconstruction in 2008 Family History Narrative Family History Grandmother with thyroid cancer Social History Alcohol Use: No Tobacco Use: No Substance Abuse: No Allergies-Medications (Allergen,Severity, Reaction): Coded Allergies: No Known Allergies (Verified , 01/25/17) Home Meds Discontinued Scripts Promethazine (Phenergan)25 Mg Tab12.5 Mg PO q 6 hours #12 TAB Ref 0 Prov:Oanh Del Rosario MD 07/11/16 Levothyroxine (Synthroid)50 Mcg Tab50 Mcg PO DAILY@06 #30 TAB Ref 2 Prov:Bharat Carvajal MD 07/04/16 Pyridoxine (Vitamin B-6)50 Mg Tab25 Mg PO Q6HR #30 TAB Prov:Bharat Carvajal MD 07/04/16 Nitrofurantoin Monohydrate Macrocrystals (Macrobid)100 Mg [id number] Mg PO BID 7 Days Ref 0 Prov:David Rey MD 06/27/16 Review of Systems Except as stated in HPI: all other systems reviewed are Neg General / Constitutional: No: Fever, Chills Eyes: No: Blurred Vision, Visual changes HENT: No: Headaches Cardiovascular: No: Chest Pain or Discomfort, Palpitations Respiratory: No: Cough, Short of Breath Gastrointestinal: No: Nausea, Vomiting, Abdominal Pain Genitourinary: No: Hematuria, Pelvic Pain, Discharge, Vaginal Bleeding Musculoskeletal: No: Edema Neurologic: No: Headache Psychiatric: No: Substance Abuse Physical Exam Narrative GENERAL: Well-nourished, well-developed patient. SKIN: Warm and dry. HEAD: Normocephalic and atraumatic. EYES: No scleral icterus. No injection or drainage. ENT: No nasal drainage noted. Mucous membranes pink. Airway patent. NECK: Supple, trachea midline. No JVD. CARDIOVASCULAR: Regular rate and rhythm without murmurs, gallops, or rubs. RESPIRATORY: Breath sounds equal bilaterally. No accessory muscle use. ABDOMEN/GI: Abdomen soft, non-tender, bowel sounds present, no rebound, no guarding Gravid to 37 weeks size GENITOURINARY: External Genitalia: intact and normal in appearance BUS glands: normal Cervix: midposition Dilatation: 5 Effacement: 70 Station: -2 Presentation: vertex Membranes: AROM, clear fluid Uterine Contractions: q2-4 min FHT's: Category: I Baseline: 148 Reactive: + Variability: moderate Decels: none EXTREMITIES: No cyanosis or edema. BACK: Nontender without obvious deformity. NEUROLOGICAL: Awake and alert. Motor and sensory grossly within normal limits. Normal speech. Data Data Vital Signs Reviewed: Yes Orders Admit To Inpatient (01/25/17 ) Code Status (01/25/17 13:40) Vital Signs (Adult) .Per protocol (01/25/17 13:40) Activity Oob Ad Louise (01/25/17 13:40) Heart (01/25/17 13:40) Amnioinfusion (01/25/17 13:40) Urinary Catheter Management .ONCE (01/25/17 13:40) Diet Liquid (01/25/17 Lunch) Lactated Ringer's 1000 Ml Inj (Lr 1000 M (01/25/17 13:40) Lactated Ringer's 1000 Ml Inj (Lr 1000 M (01/25/17 13:40) Sodium Chlorid 0.9% 500 Ml Inj (Ns 500 M (01/25/17 13:45) Sodium Chlor 0.9% 1000 Ml Inj (Ns 1000 M (01/25/17 14:00) Lidocaine 1% Inj (50 Ml) (Xylocaine 1% I (01/25/17 13:45) Citric Acid-Sodium Citrate Liq (Bicitra (01/25/17 13:45) Ondansetron Inj (Zofran Inj) (01/25/17 13:45) Fentanyl Inj (Fentanyl Inj) (01/25/17 13:45) Fentanyl Inj (Fentanyl Inj) (01/25/17 13:45) Complete Blood Count With Diff (01/25/17 13:40) Hold Clot (01/25/17 13:40) Abo/Rh Blood Type (01/25/17 13:40) Urinalysis - C+S If Indicated (01/25/17 13:40) Resp Oxygen Non Rebreathe Mask (01/25/17 ) ^ Epidural / Intrathecal Infus (01/25/17 13:40) Oxytocin 30 Units-500ml Premix (Pitocin (01/25/17 13:45) Lidocaine 1% Inj (50 Ml) (Xylocaine 1% I (01/25/17 13:45) Light Mineral Oil (Muri-Lube Oil) (01/25/17 13:45) Inpatient Certification (01/25/17 ) Specimen To Be Collected PRN (01/25/17 13:40) Assessment/Plan Assessment and Plan 26 year old at 37-8/7 weeks gestation. 1. IUP- Category I tracing, reassuring. 2. IOL for Intrahepatic Cholestasis of - AROM with clear fluid, good contraction pattern, will augment with Pitocin as needed. 3. GBS negative. 4. Anticipate vaginal delivery. lynnew Jo Lyons MD R3 Jan 25, 2017 13:48
[2017-01-25] MEDS ORDERED: OXYTOCIN 30 UNITS-500ML PREMIX 500 ML IV SCH ×2 (14:00→17:30)
[2017-01-25] MEDS ORDERED: SODIUM CHLOR 0.9% 1000 ML INJ 1,000 ML IV PRN (14:00)
[2017-01-25 14:31] LABS: AUTOMATED NEUTROPHIL # 6.3 TH/MM3 (1.8-7.7); BASOPHIL # 0.1 TH/MM3 (0-0.2); BASOPHIL % 0.7 % (0.0-2.0); EOSINOPHIL % 0.4 % (0.0-4.0); HEMATOCRIT 32.2 % (35.0-46.0); HEMO FLAGS DIFF FINAL; LYMPH % 25.3 % (9.0-44.0); LYMPHOCYTE # 2.4 TH/MM3 (1.0-4.8); MEAN CELL VOLUME 76.3 FL (80.0-100.0); MEAN CORPUSCULAR HEMOGLOBIN 25.5 PG (27.0-34.0); MEAN CORPUSCULAR HGB CONC 33.4 % (32.0-36.0); MONO % 7.1 % (0.0-8.0); NEUT % 66.5 % (16.0-70.0); PLATELET COUNT 150 TH/MM3 (150-450); RED BLOOD COUNT 4.22 MIL/MM3 (4.00-5.30); RED CELL DISTRIBUTION WIDTH 14.4 % (11.6-17.2); WHITE BLOOD COUNT 9.4 TH/MM3 (4.0-11.0)
[2017-01-25 14:34] LABS: BLOOD, URINE NEG (NEG); COMMENT (UR) CULT NOT INDICATED; CULTURE IF INDICATED CULT NOT INDICATED; GLUCOSE,URINE NEG (NEG); KETONE, URINE NEG (NEG); NITRITE,URINE NEG (NEG); SQUAMOUS EPITHELIAL CELL URINE 4 /hpf (0-5); URINE COLOR YELLOW (YELLW/STRAW)
--- NOTE | 2017-01-25 14:39 | PD.LABORPN ---
Subjective Subjective Patient breathing through contractions, starting to feel more pressure and the urge to defecate. Objective Objective Pelvic Exam: Cervix: midposition Dilatation: 8 Effacement: 90 Station: -2 Presentation: vertex Membranes: AROM, clear fluid Uterine Contractions: q2-3min FHT's: Category: I Baseline: 140 Reactive: + Variability: moderate Decels: none Assessment/Plan Assessment and Plan 26 year old at 37-8/7 weeks gestation. 1. IUP- Category I tracing, reassuring. 2. IOL for Intrahepatic Cholestasis of - AROM with clear fluid, good spontaneous contraction pattern and cervical change noted. 3. GBS negative. 4. Anticipate vaginal delivery. Jo Granados Dr., MD R3 Jan 25, 2017 14:39
[2017-01-25] MEDS ORDERED: DIPHTH/TETANUS/ACEL PERTUSSIS (BOOSTER) 0.5 ML VIAL/PFS IM ONE (16:00)
[2017-01-25] MEDS ORDERED: MEASLES, MUMPS, RUBELLA VACCINE 0.5 ML VIAL SQ ONE (16:00)
--- NOTE | 2017-01-25 17:26 | PD.OB.DELI ---
Delivery Date: Jan 25, 2017 Anesthesia: None Episiotomy: None Vaginal Delivery: Normal Presentation: Occiput anterior Nuchal Cord: x1 Delayed cord clamping (45 sec): Yes : Male One Minute : 8 Five Minute : 9 Weight: delayed measurement of weight for skin to skin Placenta: Spontaneous delivery, Intact, 3 vessel cord, Other (sent to pathology due to maternal history of intrahepatic cholestasis of ) Laceration: 1 deg (periurethral) Estimated blood loss: 250cc Additional Information Delivery supervised by Dr. Jiménez. Baby Anshul ()! Jo Rutherford MD R3 Jan 25, 2017 17:26
[2017-01-25] MEDS ORDERED: SODIUM CHLORIDE 0.9% FLUSH 10 ML FLUSH IV FLUSH PRN (17:30)
[2017-01-25] MEDS ORDERED: ACETAMINOPHEN 325 MG TAB PO PRN (17:30)
[2017-01-25] MEDS ORDERED: ONDANSETRON ODT 4 MG TAB PO PRN (17:30)
[2017-01-25] MEDS ORDERED: BENZOCAINE 20% TOPICAL SPRAY 60 ML CAN TOPICAL PRN (17:30)
[2017-01-25] MEDS ORDERED: ZOLPIDEM TARTRATE 5 MG TAB PO PRN (17:30)
[2017-01-25] MEDS ORDERED: WITCH HAZEL 50%/GLYCERIN 12.5% 40 PAD JAR TOPICAL PRN (17:30)
[2017-01-25] MEDS ORDERED: oxyCODONE/ACETAMINOPHEN 5 MG/325 MG TAB PO PRN ×2 (17:30)
[2017-01-25] MEDS ORDERED: ALUMINUM/MAGNESIUM/SIMETH 30 ML CUP PO PRN (17:30)
[2017-01-25] MEDS ORDERED: DOCUSATE SODIUM 50 MG/SENNA 8.6 MG TAB PO PRN (17:30)
[2017-01-25] MEDS ORDERED: SODIUM CHLORIDE 0.9% FLUSH 10 ML FLUSH IV FLUSH SCH (21:00)
[2017-01-26] MEDS: IBUPROFEN 600 MG TAB PO PRN ×3 (04:00→20:18)
[2017-01-26 08:00] VITALS: BP 104/55; PULSE 76; RESP 16; TEMP 97.5
[2017-01-26 08:45] VITALS: BP 104/55; PULSE 76; RESP 16; TEMP 97.5
--- NOTE | 2017-01-26 09:14 | HHI.OB ---
Subjective Post Day: 2 Objective Vitals/I&O Vital Signs Date Time Temp Pulse Resp B/P Pulse Ox O2 Delivery O2 Flow Rate FiO2 01/25/17 20:09 97.9 88 16 107/69 01/25/17 18:47 18 01/25/17 18:46 78 108/58 01/25/17 18:40 18 01/25/17 18:30 81 107/70 01/25/17 18:15 64 114/71 01/25/17 18:10 18 01/25/17 18:01 72 98/71 01/25/17 17:55 18 01/25/17 17:46 81 105/68 01/25/17 17:39 18 01/25/17 17:36 94 115/63 01/25/17 17:25 18 01/25/17 17:25 98.1 01/25/17 17:24 99 105/76 01/25/17 16:25 84 01/25/17 16:20 76 01/25/17 16:15 86 01/25/17 15:54 84 121/78 01/25/17 15:50 99 01/25/17 15:45 97.5 01/25/17 15:45 67 01/25/17 14:38 66 18 110/74 01/25/17 14:35 81 01/25/17 14:30 71 Objective Remarks GENERAL: Well-nourished, well-developed patient. CARDIOVASCULAR: Regular rate and rhythm without murmurs, gallops, or rubs. RESPIRATORY: Breath sounds equal bilaterally. No accessory muscle use. ABDOMEN/GI: Abdomen soft, non-tender. Fundus: Firm, non-tender at umbilicus. GENITOURINARY: Light to moderate bleeding. EXTREMITIES: No cyanosis or edema, non-tender, without signs of DVT. Medications and IVs Current Medications Medications (Trade) Dose Ordered Sig/Pacheco Route Start Time Stop Time Status Last Admin (NS Flush) 2 ml BID IV FLUSH 01/25/17 21:00 (NS Flush) 2 ml UNSCH PRN IV FLUSH 01/25/17 17:30 (Tylenol) 650 mg Q4H PRN PO 01/25/17 17:30 (Motrin) 600 mg Q6H PRN PO 01/25/17 17:30 01/26/17 04:00 (Percocet 5-325 Mg) 1 tab Q4H PRN PO 01/25/17 17:30 (Percocet 5-325 Mg) 2 tab Q4H PRN PO 01/25/17 17:30 (Americaine 20% Top Spr) 1 spray Q4H PRN TOPICAL 01/25/17 17:30 01/25/17 22:17 (Tucks Pads) 1 applic QID PRN TOPICAL 01/25/17 17:30 01/25/17 22:17 (Kira-Colace) 2 tab Q12H PRN PO 01/25/17 17:30 (Ambien) 5 mg HS PRN PO 01/25/17 17:30 (Mag-Al Plus Susp Liq) 15 ml Q8H PRN PO 01/25/17 17:30 (Zofran Odt) 4 mg Q6H PRN PO 01/25/17 17:30 Assessment/Plan Problem List: (1) Normal vaginal delivery Plan: ROUTINE (2) Anemia Plan: TREAT PP (3) Cholestasis during Plan: RESOLVED Assessment and Plan PT DOING WELL PAIN WELL MANAGED WITH PAIN MEDIATION AND BONDING WITH R OUTINE Discharge Planning DC HOME TOMORROW Mayte Leach Jan 26, 2017 09:14
--- NOTE | 2017-01-26 09:15 | HHI.DCPOC ---
Discharge Care Plan Diagnosis: (1) Anemia (2) Cholestasis during (3) Normal vaginal delivery Your Health Problems Are: Vaginal delivery Report Symptoms to Your Doctor -Temperature above 100.5 degrees -Redness, of incision or excessive or foul smelling drainage -Unusual pain or calf pain -Increased vaginal bleeding -Painful or difficulty urinating -Feelings of extreme sadness or anxiety after 2 weeks Goals to Promote Your Health * To prevent worsening of your condition and complications * To maintain your health at the optimal level Directions to Meet Your Goals Take your medications as prescribed Follow your dietary instruction Follow activity as directed Ensure plenty of rest for recovery Drink fluids for hydration Keep your appointments as scheduled Take your immunizations and boosters as scheduled If your symptoms worsen call your PCP, if no PCP go to Urgent Care Center or Emergency Room Smoking is Dangerous to Your Health. Avoid second hand smoke Call the 24-hour crisis hotline for domestic abuse at Mayte Leach Jan 26, 2017 09:15
[2017-01-26] MEDS ORDERED: IBUP-232 PO (09:20)
--- NOTE | 2017-01-26 09:23 | HHI.DS ---
Admission Date Jan 25, 2017 at 12:33 Discharge Date: Jan 27, 2017 Admitting Diagnosis 37 WEEK IUP CHOLESTASIS IN INDUCTION OF LABOR Diagnosis: (1) Normal vaginal delivery Diagnosis: Principal (2) Cholestasis during Diagnosis: Principal (3) Anemia Diagnosis: Secondary Delivery Date: Jan 25, 2017 Vaginal Delivery: Normal : Male Brief History Patient is a 26 year old at 37-2/7 weeks gestation who presents today for induction of labor for intrahepatic cholestasis of . Bile acids were elevated at 35.6 on 12/27/16 and trended down to 10.9 INDUCTION OF LABOR AROM/ PITOCIN Hospital Course AROM/PITOCIN ROUTINE CARE Pt Condition on Discharge: Good Discharge Disposition: Discharge Home Discharge Instructions Diet Instructions: As Tolerated, No Restrictions Additional Diet Instructions: Drink at least 8 - 16 oz bottles of water a day Activities You Can Perform: Shower Only-No Bath, Sitz Bath Activities to Avoid: Lifting/Bending, Sexual Activity Additional Activity Instruc.: No driving until off pain medications Do not lift anything heavier than your baby in an carrier Follow up Referrals: GENERAL SERVICE OFFICER - 2 Weeks @ [facility] New Medications: Ibuprofen (Ibuprofen) 600 Mg Tab 600 MG PO Q6H MODERATE PAIN #30 Ref 1 TAB Myate Leach Jan 26, 2017 09:23
[2017-01-26 19:53] VITALS: BP 103/66; PULSE 68; RESP 16; TEMP 98.2
[2017-01-27 08:12] VITALS: TEMP 98
[2017-01-27 08:13] VITALS: BP 96/65; PULSE 74; RESP 16
--- NOTE | 2017-01-27 08:42 | HHI.OB ---
Subjective Post Day: 2 Remarks Doing well Baby and bleeding are good tolerating diet and ready to go home Objective Vitals/I&O Vital Signs Date Time Temp Pulse Resp B/P Pulse Ox O2 Delivery O2 Flow Rate FiO2 01/27/17 08:13 74 16 96/65 01/27/17 08:12 98.0 01/26/17 19:53 98.2 68 16 01/26/17 19:53 103/66 01/26/17 08:45 97.5 76 16 104/55 Objective Remarks GENERAL: Well-nourished, well-developed patient. CARDIOVASCULAR: Regular rate and rhythm without murmurs, gallops, or rubs. RESPIRATORY: Breath sounds equal bilaterally. No accessory muscle use. ABDOMEN/GI: Abdomen soft, non-tender. Fundus: Firm, non-tender at umbilicus. GENITOURINARY: Light to moderate bleeding. EXTREMITIES: No cyanosis or edema, non-tender, without signs of DVT. Medications and IVs Current Medications Medications (Trade) Dose Ordered Sig/Pacheco Route Start Time Stop Time Status Last Admin (NS Flush) 2 ml BID IV FLUSH 01/25/17 21:00 (NS Flush) 2 ml UNSCH PRN IV FLUSH 01/25/17 17:30 (Tylenol) 650 mg Q4H PRN PO 01/25/17 17:30 (Motrin) 600 mg Q6H PRN PO 01/25/17 17:30 01/26/17 20:18 (Percocet 5-325 Mg) 1 tab Q4H PRN PO 01/25/17 17:30 (Percocet 5-325 Mg) 2 tab Q4H PRN PO 01/25/17 17:30 (Americaine 20% Top Spr) 1 spray Q4H PRN TOPICAL 01/25/17 17:30 01/25/17 22:17 (Tucks Pads) 1 applic QID PRN TOPICAL 01/25/17 17:30 01/25/17 22:17 (Kira-Colace) 2 tab Q12H PRN PO 01/25/17 17:30 (Ambien) 5 mg HS PRN PO 01/25/17 17:30 (Mag-Al Plus Susp Liq) 15 ml Q8H PRN PO 01/25/17 17:30 (Zofran Odt) 4 mg Q6H PRN PO 01/25/17 17:30 Assessment/Plan Problem List: (1) Normal vaginal delivery Plan: ROUTINE (2) Anemia Plan: TREAT PP (3) Cholestasis during Plan: RESOLVED Assessment and Plan PT DOING WELL PAIN WELL MANAGED WITH PAIN MEDIATION AND BONDING WITH INFANT R OUTINE Discharge Planning [facility] Fransico Jiménez MD Jan 27, 2017 08:42
== END 2017-01-27 13:49 | disposition home or self-care (01) | DRG 775 ==
LOC: H2EB 12:33 → H1EA 20:00 → UNDODISIN 01-27 01:49
PROVIDERS: ADMIT Obstetrics & Gynecology; ATTEND Obstetrics & Gynecology
PROC: 10E0XZZ Delivery of Products of Conception, External Approach (ICD-10-PCS; principal; 2017-01-25)
PROC: 0HQ9XZZ Repair Perineum Skin, External Approach (ICD-10-PCS; 2017-01-25)
DX: O26.62 Liver and biliary tract disorders in childbirth (principal); K83.1 Obstruction of bile duct; Z37.0 Single live birth; Z3A.37 37 weeks gestation of pregnancy; O69.81X0 Labor and delivery complicated by cord around neck, without compression, not applicable or unspecified; O70.0 First degree perineal laceration during delivery; O99.02 Anemia complicating childbirth; D64.9 Anemia, unspecified
CPT/HCPCS: 59025; 81001; 85025; J2590; J7120

== ENCOUNTER → 2017-03-13 | Outpatient (CLI) | payer MEDICAID ==
[~2017-03-13] MED LIST changes: +IBUP-232 PO; -LEVO.05 PO; -MACR100C2 PO; -PROM25TA5 PO; -VITA50TA3 PO
[2017-03-13 13:04] LABS: HEMATOCRIT 39.4 % (35.0-46.0); MEAN CELL VOLUME 78.3 FL (80.0-100.0); MEAN CORPUSCULAR HEMOGLOBIN 25.1 PG (27.0-34.0); PLATELET COUNT 206 TH/MM3 (150-450); RED BLOOD COUNT 5.04 MIL/MM3 (4.00-5.30); RED CELL DISTRIBUTION WIDTH 15.4 % (11.6-17.2); REVIEW FLAG FINAL; WHITE BLOOD COUNT 5.3 TH/MM3 (4.0-11.0)
[2017-03-13 13:12] LABS: BLOOD, URINE NEG (NEG); GLUCOSE,URINE NEG (NEG); KETONE, URINE NEG (NEG); MUCUS URINE FEW /lpf (OCC); NITRITE,URINE NEG (NEG); SQUAMOUS EPITHELIAL CELL URINE 1 /hpf (0-5); URINE COLOR YELLOW (YELLW/STRAW)
[2017-03-13 13:32] LABS: ANION GAP 6 MEQ/L (5-15); AST (GOT) 8 U/L (15-37); BICARBONATE 28.9 MEQ/L (21.0-32.0); BLOOD UREA NITROGEN 10 MG/DL (7-18); CHLORIDE 106 MEQ/L (98-107); GLOMERULAR FILTRATION RATE 93 ML/MIN (>89); GLUCOSE,FASTING 76 MG/DL (74-99); POTASSIUM 3.9 MEQ/L (3.5-5.1); SODIUM (NA) 141 MEQ/L (136-145)
[2017-03-13 13:39] LABS: ALKALINE PHOSPHATASE 100 U/L (45-117); ALT (GPT) 15 U/L (10-53); BHCG SCREEN QUALITATIVE LESS THAN 1 MIU/ML (0-5); TOTAL BILIRUBIN ADULT 0.4 MG/DL (0.2-1.0)
== END ==
LOC: CPRE 12:04
PROVIDERS: ATTEND Obstetrics & Gynecology
DX: Z01.812 Encounter for preprocedural laboratory examination (principal); Z78.9 Other specified health status
CPT/HCPCS: 36415; 80053; 81001; 84703; 85027

== ENCOUNTER → 2017-03-16 | Day surgery (SDC) | payer MEDICAID ==
[~2017-03-16] VITALS: Ht 167.6 cm; Wt 64.7 kg
[~2017-03-16] MED LIST changes: +*MEPERIDINE 25 MG INJ VIAL PERIprocedural Use ONLY ONE; +*morphine SULFATE 8 MG/ML PERIprocedure ONLY ONE; +ACETAMINOPHEN 1000 MG/100 ML 100 ML IV ONE; +CHLORHEXIDINE GLUCONATE 2 % 1 PACK (2 CLOTHS) TOPICAL PRN; +DEXAMETHASONE SOD PHOS 4 MG/ML VIAL IV ONE; +DO NOT ADM ANY ANTICOAGULANT DRUGS PRN; +ESMOLOL HCL 100 MG/10 ML VIAL IV ONE; +FAMOTIDINE 20 MG/2 ML VIAL ONE; +GLYCOPYRROLATE 1 MG/5 ML SYRINGE IV PUSH ONE; -IBUP-232 PO; +INSULIN HUMAN REGULAR 1,000 UNITS/10 ML VIAL SQ PRN; +KETOROLAC TROMETHAMINE 30 MG/ML (IVP) VIAL IV PUSH ONE; +LACTATED RINGER'S 1000 ML INJ 1,000 ML ONE; +LACTATED RINGER'S 1000 ML IV PRN; +LIDOCAINE HCL 1% PF 5 ML AMPULE OTHER ONE; +METOPROLOL TARTRATE 25 MG TAB PO PRN; +MIDAZOLAM HCL 2 MG/2 ML VIAL IV ONE; +NEOSTIGMINE 3 MG/3 ML SYR IV ONE; +ONDANSETRON HCL 4 MG/2 ML VIAL IV PUSH ONE; +ONDANSETRON HCL 4 MG/2 ML VIAL IV PUSH PRN; +PHENYLEPH/NS 1000 MCG/10 ML SYR IV ONE; +POVIDONE IODINE 5% (ANTISEPSIS KIT) 4 APPLICATIONS EACH NARE PRN; +ROCURONIUM INJ 50 MG/5 ML SYRINGE IV PUSH ONE; +SODIUM CHLORID 0.9% 500 ML IV PRN; +ePHEDrine/NS 25 MG/5 ML SYR IV ONE; +oxyCODONE/ACETAMINOPHEN 5 MG/325 MG TAB PO PRN
[2017-03-16 14:54] VITALS: BP 110/80; PULSE 92; RESP 16; TEMP 98; O2SAT 96
--- NOTE | 2017-03-28 15:03 | MP ---
cc: Fransico JIMÉNEZ MD DATE OF SURGERY 03/16/2017 PREOPERATIVE DIAGNOSIS Desires permanent sterilization. POSTOPERATIVE DIAGNOSIS Desires permanent sterilization. PROCEDURE D&C and laparoscopic bilateral salpingectomy. ANESTHESIA General endotracheal intubation SURGEON Fransico Jiménez MD FINDINGS Examination under anesthesia, the vagina was clean. The cervix was clean. The uterus is normal in size, shape and consistency and mobile. The adnexa were negative for masses. D&C revealed a normal amount of tissue and the laparoscopic exam revealed a normal uterus, normal tubes, normal ovaries, normal anterior and posterior cul-de-sac, normal GI tract. COMPLICATIONS None COUNTS Correct ESTIMATED BLOOD LOSS Minimal CONDITION The patient tolerated the procedure well and went to the recovery room in good condition. PROCEDURE IN DETAIL The patient was taken to the operating theater and identified by name band and verbally. She was given a general anesthetic, placed in the dorsal lithotomy position and prepped and draped in the usual sterile manner for laparoscopic vaginal surgery. The time-out was taken and an examination under anesthesia was carried out with the above findings. A weighted speculum was placed into the vagina. The anterior lip of the cervix was grasped with a single-tooth tenaculum. The cervix serially dilated without difficulty and using a #1 sharp curette, the entire endometrial surface was curetted briskly. The Hulka clamp was then placed and attention was turned to the umbilical area. A small subumbilical incision was made and with a 5 mm trocar, the abdomen was entered under direct vision without difficulty and the pneumoperitoneum was created with 3 liters of CO2. Inferolateral to the umbilicus bilaterally, I put two more 5 mm ports for manipulation of the tissue. At this time, we used the harmonic scalpel to take down the mesosalpinx and remove the entire tube. Hemostasis was excellent. This was repeated on the contralateral side. At this point, the tubes were sent off for pathologic evaluation with the endometrium and all surgical sites were again inspected and were hemostatic. The laparoscope was then removed under direct vision. The second and third punctures were used to release all the air. The skin was then repaired with a 4-0 Monocryl in a subcuticular fashion. She tolerated procedure well, went to the recovery room in good condition. R. MD RUMA Llanes/DJL /11:47 AM /2:49 PM
== END | disposition home or self-care (01) ==
LOC: HSDC 10:08
PROVIDERS: ATTEND Obstetrics & Gynecology
DX: Z30.2 Encounter for sterilization (principal); N71.1 Chronic inflammatory disease of uterus; D64.9 Anemia, unspecified
CPT/HCPCS: 00840; 58120; 58661; 88302; 88305; J0131; J1100; J1885; J2175; J2250; J2270; J2370; J2405; J2710; J3010; J7120